=== PATIENT | female | born 1955 | race Caucasian/White ===

== ENCOUNTER 2023-10-07 07:42 | Outpatient (CLI) | payer MEDICARE, BC, SELFPAY ==
--- NOTE | 2023-10-07 07:43 | US_ITS ---
PROCEDURE: US PELVIC CLINICAL INDICATION: pelvic pain COMPARISON: No exams were available for comparison FINDINGS: Transabdominal sonographic images of the pelvis were obtained. Patient unable to tolerate transvaginal examination. UTERUS: 6.5cm x 3.1cmx 2.4cm anteverted with a combined endometrial thickness of 3mm. LEFT OVARY: Not visualized. RIGHT OVARY: Not visualized. Both ovaries are not seen. There is no fluid in the cul-de-sac. IMPRESSION: 1. Anteverted small uterus. The endometrium is thin. 2. Ovaries could not be visualized. 3. No fluid in the cul-de-sac. Dictated by: Gregorio Ashraf MD 10/07/2023 14:45 Gregorio Ashraf MD in [facility] 10/07/2023 14:45
--- NOTE | 2023-10-07 07:43 | MM_ITS ---
PROCEDURE INFORMATION: Exam: MG Bilateral Screening 3D Mammography Exam date and time: 10/07/2023 7:35 AM Age: 67 years old Clinical indication: Screening exam. TECHNIQUE: Imaging protocol: Bilateral Screening tomosynthesis and 2D mammography including computer-aided detection (CAD) when performed. COMPARISON: 1. MG DIG MAMMO DIAG UNI RIGHT 03/21/2009 3:48 PM 2. MG DIG MAMMO BILAT SCREENING 03/15/2009 9:19 AM FINDINGS: MAMMOGRAPHY: Breast composition: There are scattered areas of fibroglandular density. Mass: No suspicious masses. Architectural distortion: None. Calcifications: No suspicious calcifications. Asymmetric density: None. Skin thickening: None. Axillary adenopathy: None. IMPRESSION: No mammographic evidence of malignancy. Annual screening is recommended unless otherwise clinically indicated. ASSESSMENT: BI-RADS Category 1: Negative
== END 2023-10-07 23:59 | disposition home or self-care (01) ==
LOC: RAD 07:43
PROVIDERS: PCP Internal Medicine; Visit Provider Obstetrics & Gynecology
DX: Z12.31 Encounter for screening mammogram for malignant neoplasm of breast (principal); R10.2 Pelvic and perineal pain
CPT/HCPCS: 76856; 77063; 77067

== ENCOUNTER 2023-10-19 07:37 | Outpatient (CLI) | payer MEDICARE, BC, SELFPAY ==
[2023-10-19 08:12] LABS: Basophils # 0.1 K/mm3 (0-0.2); Basophils % 1.3 % (0.1-2.0); Eosinophils # 0.1 K/mm3 (0.0-0.4); Eosinophils % 1.8 % (0.1-12.0); Hematocrit 43.2 % (37.0-47.0); Hemoglobin 13.7 g/dL (12.2-16.2); Lymphocytes # 1.5 K/mm3 (0.7-4.5); Lymphocytes % 35.3 % (10-50); Mean Corpuscular HGB Conc 31.7 g/dL (31.8-35.4); Mean Corpuscular Hemoglobin 30.3 pg (27.0-31.2); Mean Corpuscular Volume 95.7 fl (81-99); Monocytes # 0.3 K/mm3 (0.1-1.0); Neutrophils # 2.3 K/mm3 (1.8-7.8); Neutrophils % 53.6 % (37.0-80.0); Platelet Count 259 K/mm3 (142-424); Red Blood Count 4.51 M/mm3 (4.20-5.40); Red Cell Distribution Width 13.9 % (11.5-17.5); White Blood Count 4.2 K/mm3 (4.8-10.8)
[2023-10-19 09:12] LABS: Alanine Aminotransferase 17 U/L (12-78); Albumin Level 4.4 g/dl (3.5-5.0); Albumin/Globulin Ratio 1.9 (1.1-1.8); Alkaline Phosphatase 52 U/L (38-126); Anion Gap 8.8 mEq/L (5-15); Aspartate Amino Transferase 30 U/L (14-36); Bilirubin,Total 0.9 mg/dl (0.2-1.3); Blood Urea Nitrogen 15 mg/dl (7-17); Calcium 9.7 mg/dl (8.4-10.2); Carbon Dioxide 28 mmol/L (22.0-30.0); Chloride 110 mmol/L (98-107); Chol/HDL Ratio 2.4 (1-3.5); Cholesterol 181 mg/dl (140-200); Estimated Glomerular Filt Rate 84 ml/min (>60); GFR (African American) 102 ML/MIN (>60); Globulin 2.3 g/dL (1.3-3.2); Glucose 99 mg/dl (74-100); HDL Cholesterol 77 mg/dl (40-60); Potassium 4.8 mmoL/L (3.5-5.1); Sodium 142 mmol/L (136-145); Total Protein,Serum 6.7 g/dl (6.3-8.2); Triglycerides 90 mg/dl (30-150); Uric Acid 4.5 mg/dl (2.5-6.2); VLDL Cholesterol 18 mg/dL (0-40)
[2023-10-19 09:24] LABS: C-Reactive Protein < 0.3 mg/L (0-4)
[2023-10-19 11:18] LABS: Erythrocyte Sedimentation Rate 13 mm/hr (0-30)
[2023-10-19 12:08] LABS: Direct LDL Cholesterol 73.53 mg/dL (100-129)
[2023-10-19 12:29] LABS: Thyroid Stimulating Hormone 4.39 uIU/mL (0.465-4.68)
[2023-10-19 12:33] LABS: Ferritin 24.9 ng/ml (11.1-264)
[2023-10-19 13:20] LABS: Vitamin B12 714 pg/mL (239-931)
[2023-10-20 10:13] LABS: Insulin Level Total 8.1 uIU/mL (2.6-24.9)
[2023-10-27 22:12] LABS: 1,25 Dihydroxy Vitamin D 35 pg/mL (.); 1,25-Dihydroxy, Vitamin D-2 <10 pg/mL (.); 1,25-Dihydroxy, Vitamin D-3 35 pg/mL (.)
== END 2023-10-19 23:59 | disposition home or self-care (01) ==
LOC: LAB 07:38
PROVIDERS: PCP Internal Medicine; Visit Provider Obstetrics & Gynecology
DX: M25.551 Pain in right hip; M25.552 Pain in left hip; R10.31 Right lower quadrant pain; R10.32 Left lower quadrant pain; Z12.31 Encounter for screening mammogram for malignant neoplasm of breast
CPT/HCPCS: 36415; 80053; 80061; 82607; 82652; 82728; 83036; 83525; 84443; 84550; 85025; 85651; 86140

== ENCOUNTER 2023-10-28 09:10 | Outpatient (CLI) | payer MEDICARE, BC, SELFPAY ==
--- NOTE | 2023-10-28 09:11 | XR_ITS ---
FINAL REPORT CLINICAL HISTORY: Screening Dexa, Osteoporosis/Osteopenia COMPARISON: None FINDINGS: Using L1-4, the bone mineral density of the spine is 0.731 g/cm2, corresponding to T-score of -2.9 which is consistent with osteoporosis. Using the left hip, the bone mineral density of the femoral neck is 0.648 g/cm2, corresponding to a T-score of -2.4 which is consistent with low bone density. Using the right hip, the bone mineral density of the femoral neck is 0.623 g/cm2, corresponding to a T-score of -2.0 which is consistent with low bone density. FRAX not reported because some T-score at or below -2.5. NOTE: T-score: Standard deviation compared with peak bone mass of young adult mean. *Following the recommendations of the International Society of Bone densitometry, classification of hip BMD is based on the lower of two T-scores; total hip or femoral neck. IMPRESSION: Diminished bone mineral density consistent with osteoporosis. Reviewed, Interpreted and Dictated by Isidro Sutton III, MD Transcribed by Meaghan Bill Authenticated and . [facility]
== END 2023-10-28 23:59 | disposition home or self-care (01) ==
LOC: RAD 09:11
PROVIDERS: PCP Internal Medicine; Visit Provider Obstetrics & Gynecology
DX: M81.0 Age-related osteoporosis without current pathological fracture (principal); R10.31 Right lower quadrant pain; R10.32 Left lower quadrant pain; M25.551 Pain in right hip; M25.552 Pain in left hip; M85.80 Other specified disorders of bone density and structure, unspecified site; Z78.0 Asymptomatic menopausal state; Z00.00 Encounter for general adult medical examination without abnormal findings
CPT/HCPCS: 77080

== ENCOUNTER 2025-02-10 08:01 | Outpatient (CLI) | payer MEDICARE, BC, SELFPAY ==
--- OUTSIDE RECORDS SUMMARY | 2025-02-10 08:04 | XMS_ITS | Clinical Summary ---
[facility] Address [address] [place] [address] Care Team Providers Care Home Care Aide Name Role Phone Jt Oviedo MD Primary Care Provider [phone] Allergies No known active allergies Medications omeprazole (priLOSEC) 40 MG capsuleIndicatio ns:Gastroesophag eal reflux disease, unspecified whether esophagitis present Take 1 capsule by mouth Daily. 90 capsule 3 Active ondansetron (ZOFRAN) 4 MG tablet 3 Active estradiol (ESTRACE) 0.1 MG/GM vaginal cream Insert 1 gram into the vagina twice a week 3 Active Vitamin D, Cholecalciferol, 50 MCG (1999) capsule Take by mouth. Active fluticasone (FLONASE) 50 MCG/ACT nasal sprayIndications :Non-seasonal allergic rhinitis due to pollen 2 sprays into the nostril(s) as directed by provider Daily. 11.1 mL 4 Active alendronate (FOSAMAX) 70 MG tablet Take 1 tablet by mouth Every 7 (Seven) Days. 4 Active simvastatin (ZOCOR) 20 MG tablet Take 1 tablet by mouth every night at bedtime. 90 tablet 2 4 Active Calcium Carbonate-Vit D-Min (Calcium 600+D Plus Minerals) 600-400 MG-UNIT tablet Take 1 tablet by mouth 2 (Two) Times a Day. Active levothyroxine (SYNTHROID, LEVOTHROID) 75 MCG tablet Take 1 tablet by mouth Daily. 90 tablet 1 5 Active cetirizine (zyrTEC) 10 MG tabletIndication s:Non-seasonal allergic rhinitis due to pollen Take 1 tablet by mouth Daily. 30 tablet 3 5 Active Active Problems Problem Noted Date Diagnosed Date Age-related osteoporosis wit hout current pathological fracture 03/25/2024 Assessment & Plan (03/25/2024 6:43 PM EST): DEXA scan from 10/2023 revealing osteoporosis of the lumbar spine and bilateral hip osteopenia. Started back on Fosamax 70 mg weekly by her lab clerk with proper dosing technique emphasized today, taking vitamin D 2000 IU daily advised adding calcium 600 mg twice daily OTC. Recommended repeating DEXA scan in 2 years. I did specifically address her concern regarding Fosamax therapy, and given that she had been off the medication for several years I think this is the most appropriate initial therapy for her. Medicare annual wellness visit, initial 03/25/19 25 Assessment & Plan (03/25/2024 6:43 PM EST): Encounter for general adult medical examination with abnormal findings 03/25/2024 Assessment & Plan (03/25/2024 6:43 PM EST): 68-year-old female presenting for general health review/complete physical along with initial Medicare wellness visit, specific health issues being addressed as detailed below, health maintenance includes Cologuard up-to-date from 06/2022, mammogram and DEXA scan both current from 10/2023, most recent Pap smear specific date unknown with low risk profile, no further evaluation necessary, screening labs from 09/2023 up-to-date with limited follow-up testing being performed today, Tdap vaccine deferred by patient given lack of Medicare coverage, Prevnar 20 and high-dose flu shot given today, advised update Shingrix vaccine through health [facility]. Follow-up in 1 year for another Medicare wellness visit and complete physical, and as needed in the interim. Orders: CBC & Differential; Future TSH; Future T4, Free; Future T4, Free TSH CBC & Differential Neutropenia 03/25/2024 Assessment & Plan (03/25/2024 6:43 PM EST): Mild nonspecific leukopenia with white count of 4200 per testing in 09/2019 for having had a normal hemoglobin platelet count of differential. Will simply repeat a CBC with differential. Orders: CBC & Differential; Future CBC & Differential Myalgia 03/25/2024 Assessment & Plan (03/25/2024 6:43 PM EST): Describes several months of some vague myalgias and for extremities primarily. Her examination is benign as is her history otherwise. Suspect may be statin related, having her for now discontinue her simvastatin for at least 4 to 6 weeks at which she will notify this office regarding her clinical response. If the myalgias have resolved this would support mild just secondary to simvastatin she will be switched to a different statin on a trial basis. If the myalgias do not stop after that time interval, then the likelihood of simvastatin causing this myalgias would be minimal. Will also check some screening labs as noted Orders: CK Isoenzymes; Future Myoglobin, Serum; Future Myoglobin, Serum CK Isoenzymes Non-seasonal allergic rhinitis due to pollen 07/2023 Assessment & Plan (03/25/2024 6:43 PM EST): Relates good symptomatic relief taking cetirizine 10 mg daily OTC. Advised she may supplement with Flonase as needed. Assessment & Plan (11/02/2023 6:27 PM EDT): Testing negative for COVID and flu in office today. Symptoms set and physical exam findings most consistent with that of allergic rhinitis. Patient not currently taking any type of allergy medications. Prescription sent for daily Flonase and Zyrtec for her to begin taking. Also discussed benefits of saline nasal spray. She will follow-up with her regular PCP, Dr. Jt Oviedo if no improvement COVID-19 virus infection 04/30/2023 Overview (04/30/2023): COVID-19 infection 04/30/2023 Assessment & Plan (04/30/2023 3:12 PM EST): Rapid COVID-19 positive. Does not appear acutely ill. Given high risk based upon age, will treat with Paxil bid with patient advised to discontinue her simvastatin while on therapy, pushing plenty fluids, Motrin or Tylenol as needed, and advised that she should stay in isolation until she is afebrile x 24 hours without therapy, and is significantly feeling better. Advise if has any significant deterioration of condition in the interim, i.e. development of any respiratory distress, etc. Very clinically stable at time of office discharge. Viral syndrome 04/30/2023 Assessment & Plan (04/30/2023 3:13 PM EST): Rapid COVID-19 screen positive, influenza screen negative. Treat COVID-19 as noted above. Symptomatic treatment otherwise. Sensorineural hearing loss 06/25/2022 Vitamin D deficiency 06/19/2022 Microhematuria 05/30/2022 Urinary urgency 05/30/2022 Dysuria 04/21/2022 Osteopenia of multiple sites 04/04/2022 Overview (04/04/2022): DEXA scan 01/2020 Vitamin D deficiency 04/04/2022 Assessment & Plan (03/25/2024 6:43 PM EST): Taking vitamin D 2000 IU daily. Satisfactory level from 09/2023. Vertigo 04/04/2022 Overview (04/04/2022): Suspected BPPV 11/2020 Cervicalgia 04/04/2022 Overview (04/04/2022): MRI C-spine 05/21/2021 revealing degenerative changes with small disc central protrusion C6-7 Acquired hypothyroidism 04/04/2022 Assessment & Plan (03/25/2024 6:43 PM EST): Taking levothyroxine 75 mcg daily with an isolated TSH normal in 09/2023. Repeat TSH adding free T4. Orders: TSH; Future T4, Free; Future T4, Free TSH Dyslipidemia 04/04/2022 Assessment & Plan (03/25/2024 6:43 PM EST): Prescribed simvastatin 20 mg nightly with satisfactory lipid profile from 09/2023. She is having some myalgias which could be attributed to the simvastatin thus I advised discontinuing simvastatin for at least 4 to 6 weeks to see if the myalgias resolved. If not then reinitiate simvastatin as prescribed. If the myalgias do get better suggesting statin related etiology, then will initiate trial of a different statin. If this is the case then we will repeat another lipid profile in 2 to 3 months. Gastroesophageal reflux disease 04/04/2022 Assessment & Plan (03/25/2024 6:43 PM EST): Good control of symptoms taking omeprazole 40 mg daily. Resolved Problems Problem Noted Date Diagnosed Date Resolved Date Microscopic hematuria 04/21/20222022 Immunizations Immunization Administration Dates Next Due COVID-19 (SABA) 05/01/2020 COVID-19 (MODERNA) 1st,2nd,3 rd Dose Monovalent 08/15/2021,01/21/2021 COVID-19 (MODERNA) BIVALENT 12+YRS 02/03/2022 Fluzone (or Fluarix & Flulav al for VFC) >6mos 01/02/2022,11/22/2019 Fluzone High-Dose 65+YRS 03/25/2024 Influenza Seasonal Injectable 12/03/2020 Influenza, Unspecified 01/02/2022,12/03/2020, Pneumococcal Conjugate 20-Valent (PCV20) 025 Social History Tobacco Use Types Packs/Day Years Used Date Smoking Tobacco: Never Smokeless Tobacco: Never Tobacco Cessation:Counseling Given: Not Answered Alcohol Use Standard Drinks/Week Comments Yes 0 (1 standard drink = 0.6 oz pur e alcohol) social PHQ-2 Answer Date Recorded Retired PHQ-9: Brief Depression Severity Measure Score 0 06/20/2022 PHQ-2 Answer Date Recorded Patient Health Questionnaire-2 Score 0 03/25/2024 Comments Unknown Sex and Gender Information Value Date Recorded Sex Assigned at Not on file Legal Sex Female 1:04 PM EDT Gender Identity Not on file Sexual Orientation Not on file Last Filed Vital Signs Vital Sign Reading Time Taken Comments Blood Pressure 133/83 03/25/2024 8:35 AM EST Pulse 104 03/25/2024 8:35 AM EST Temperature 36.4 C (97.6 F) 03/25/2024 8:35 AM EST Respiratory Rate 18 10/30/2023 10:15 AM EDT Oxygen Saturation 99% 03/25/2024 8:35 AM EST Inhaled Oxygen Concentration - - Weight 64.1 kg (141 lb 6.4 oz) 03/25/2024 8:35 A M EST Height 160 cm (5' 3 ) 03/25/2024 8:35 AM EST Body Mass Index 25.05 03/25/2024 8:35 AM EST Plan of Treatment Health Maintenance Due Date Last Done Comments TDAP/TD VACCINES (1 - Tdap) 1974 COLON CANCER SCREENING 5 YEA R SIGMOIDOSCOPY [address] COLONOGRAPHY 2002 FECAL OCCULT BLOOD TEST 2002 FIT Testing (1 year) 2002 ZOSTER VACCINE (1 of 2) 11/24/2007 INFLUENZA VACCINE 09/23/2024 03/25/2024, , 01/02/2022, Additional history exists COVID-19 Vaccine (2023-2 5 season) 2024 12/30/2023, 02/03/2022, 08/15/2021, Additional history exists ANNUAL WELLNESS VISIT 03/25/2025 03/25/2024, 025 COLOGUARD 07/10/2025 07/10/2022 COLORECTAL CANCER SCREENING 07/10/2025 MAMMOGRAM 10/18/2025 10/19/2023, 09/24, 10/07/2023, Additional history exists DXA SCAN 10/27/2025 10/28/2023, 10/28/2023 HEPATITIS C SCREENING Completed 06/20/2022 Pneumococcal Vaccine 50+ Completed 03/25/2024 Procedures Procedure Name Priority Date/Time Associated Diagnosis Comments SCANNED - DEXA 10/28/2023 SCANNED - MAMMO 10/07/2023 COLOGUARD Routine 07/10/2022 8:00 AM EDT Encounter for general adult medical examination with abnormal findings Screen for colon cancer HEPATITIS C ANTIBODY Routine 06/20/2022 10:19 AM EDT Encounter for general adult medical examination with abnormal findings Need for hepatitis C screening test from Last 3 Months or Most Recently Relevant to Health Maintenance Results * DEXA Scan (10/28/2023) Anatomical Region Laterality Modality Other Jt Oviedo MD CHART REVIEW TABS Final Res ult * MAMMO Scan (10/07/2023) Anatomical Region Laterality Modality Other Jt Oviedo MD CHART REVIEW TABS Final Res ult * Cologuard - Stool, Per Rectum (07/10/2022 8:00 AM EDT) Cologuard Negative Negative 07/19/2022 5:32 AM EDT [facility] (CLIA #:[id number]) Comment: NEGATIVE TEST RESULT. A negative Cologuard result indicates a low likelihood that a colorectal cancer (CRC) or advanced adenoma (adenomatous polyps with more advanced pre-malignant features) is present. The chance that a person with a negative Cologuard test has a colorectal cancer is less than 1 in 1500 (negative predictive value >99.9%) or has an advanced adenoma is less than 5.3% (negative predictive value 94.7%). These data are based on a prospective cross-sectional study of 10,000 individuals at average risk for colorectal cancer who were screened with both Cologuard and colonoscopy. (Mis Frias al, N Engl J Med 2014;370(14):2624-2538) The normal value (reference range) for this assay is negative. COLOGUARD RE-SCREENING RECOMMENDATION: Periodic colorectal cancer screening is an important part of preventive healthcare for asymptomatic individuals at average risk for colorectal cancer. Following a negative Cologuard result, the [place] [employer] Society and U.S. Multi-Society Task Force screening guidelines recommend a Cologuard re-screening interval of 3 years. References: [place] [employer] Guideline for Colorectal Cancer Screening: https://www.cancer.org/cancer/ehguy-kbmjmz-fpqtnp/jdmtdxlxy-gyeqkwind-oxiylmd/ac s-rec ommendations.html.; Bry Brownand CR, Shellie MillerK, Colorectal Cancer Screening: Recommendations for Physicians and Patients from the U.S. Multi-Society Task Force on Colorectal Cancer Screening , Am J Gastroenterology 2017; 112:9378-6514. TEST DESCRIPTION: Composite algorithmic analysis of stool DNA-biomarkers with hemoglobin immunoassay. Quantitative values of individual biomarkers are not reportable and are not associated with individual biomarker result reference ranges. Cologuard is intended for colorectal cancer screening of adults of either sex, 45 years or older, who are at average-risk for colorectal cancer (CRC). Cologuard has been approved for use by the U.S. FDA. The performance of Cologuard was established in a cross sectional study of average-risk adults aged 50-84. Cologuard performance in patients ages 45 to 49 years was estimated by sub-group analysis of near-age groups. Colonoscopies performed for a positive result may find as the most clinically significant lesion: colorectal cancer [4.0%], advanced adenoma (including sessile serrated polyps greater than or equal to 1cm diameter) [20%] or non- advanced adenoma [31%]; or no colorectal neoplasia [45%]. These estimates are derived from a prospective cross-sectional screening study of 10,000 individuals at average risk for colorectal cancer who were screened with both Cologuard and colonoscopy. (Mis Frias al, N Engl J Med 2014;370(14):5221-9663.) Cologuard may produce a false negative or false positive result (no colorectal cancer or precancerous polyp present at colonoscopy follow up). A negative Cologuard test result does not guarantee the absence of CRC or advanced adenoma (pre-cancer). The current Cologuard screening interval is every 3 years. ([place] [employer] Society and U.S. Multi-Society Task Force). Cologuard performance data in a 10,000 patient pivotal study using colonoscopy as the reference method can be accessed at the following location: www.[employer].YelloYello/results. Additional description of the Cologuard test process, warnings and precautions can be found at www.[employer].com. Stool specimen (specimen) Specimen from rectum / Unknown 07/10/2022 8:00 AM EDT 07/11/2022 4:21 PM EDT Jt Oviedo MD BODY FLUIDS AND STOOLS ORDERAB LES Final Result [facility] (CLIA #:[id number]) [address] [place] [address], [place] [phone] * Hepatitis C Antibody (06/20/2022 10:19 AM EDT) Hep C Virus Ab Non Reactive Non Reactive [facility] Comment: HCV antibody alone does not differentiate between previously resolved infection and active infection. Equivocal and Reactive HCV antibody results should be followed up with an HCV RNA test to support the diagnosis of active HCV infection. Blood Structure of right upper limb / Unknown 06/20/2022 10:19 AM EDT 06/20/2022 Comment:Blood Release to [facility] Narrative [facility] (AMBULATORY) - 06/21/2022 8:08 AM EDT Performed at: - Lab[address] [id number] Tavern Car Attendant: Nicholas Urias PhD, Phone: [phone] Jt Oviedo MD LAB BLOOD ORDERABLES Final Res ult Performing Organization Address [facility] Co de Phone Number [facility] [address] [place] [address], [place] [phone] [facility] [address] [place] [address], [place] [phone] from Last 3 Months or Most Recently Relevant to Health Maintenance Insurance MEDICARE A & [facility] Care Teams Home Care Aide Relationship Specialty Start Date End Date Jt Oviedo MD [address] [place] [address] PCP - General Internal Medicine 04/04/22
--- OUTSIDE RECORDS SUMMARY | 2025-02-10 08:04 | XMS_ITS | Clinical Summary ---
Author Organization Healthcare Address [address] [place] [address] Care Team Providers Care Engineering Technician Parking Name Role Phone Jt Oviedo MD Primary Care Provider [phone] Allergies No known active allergies Medications levothyroxine (Synthroid, Levoxyl) 75 MCG tablet Take 75 mcg by mouth 1 (one) time each day. 02/06/2022 Active omeprazole (PriLOSEC) [address] capsule Take 40 mg by mouth 1 (one) time each day. 04/17/2022 Active simvastatin (Zocor) 20 MG tablet Take 20 mg by mouth every night. 02/06/2022 Active estradiol (Estrace) 0.1 MG/GM vaginal cream Insert 1 gram into the vagina twice a week 30 g 11 06/05/2022 Active Active Problems Problem Noted Date Diagnosed Date Urinary frequency 05/30/2022 Microhematuria 05/30/2022 Urinary urgency 05/30/2022 Acquired hypothyroidism 04/04/2022 Dyslipidemia 04/04/2022 Gastroesophageal reflux disease 04/04/2022 Vertigo 04/04/2022 Overview (05/30/2022): Suspected BPPV 11/2020 Family History Medical History Relation Name Comments No Known Problems Father Alzheimer's disease Mother Relation Name Status Comments Father Mother Social History Tobacco Use Types Packs/Day Years Used Date Smoking Tobacco: Never Smokeless Tobacco: Never Tobacco Cessation:Counseling Given: Not Answered Alcohol Use Standard Drinks/Week Comments Never 0 (1 standard drink = 0.6 oz pur e alcohol) PHQ-2 Answer Date Recorded Patient Health Questionnaire-2 Score 0 05/23/2022 PHQ-2A Answer Date Recorded Patient Health Questionnaire-2 Score 0 05/23/2022 Comments Unknown Sex and Gender Information Value Date Recorded Sex Assigned at Not on file Legal Sex Female 8:50 AM EDT Gender Identity Not on file Sexual Orientation Not on file Last Filed Vital Signs Vital Sign Reading Time Taken Comments Blood Pressure 144/80 06/04/2022 8:43 AM EDT Pulse 87 06/04/2022 8:43 AM EDT Temperature - - Respiratory Rate - - Oxygen Saturation - - Inhaled Oxygen Concentration - - Weight 56.2 kg (123 lb 14.4 oz) 06/04/2022 8:43 AM EDT Height 160 cm (5' 3 ) 05/23/2022 9:01 AM EDT Body Mass Index 21.95 05/23/2022 9:01 AM EDT Plan of Treatment Health Maintenance Due Date Last Done Comments [facility]-Bone Density Scan 1957 [facility]-Hepatitis C Screening 1955 [facility]-Infant/Child/Adol SDOH Screenings 1955 [facility]- SDOH Screenings 11/24/1975 [facility]-Adult SDOH Screenings 11/24/1975 [facility]-DTaP,Tdap,and Td Vaccines (1 - Tdap) 1976 CT Colonography 2002 Colonoscopy 2002 FIT-DNA 2002 FIT 2002 FOBT 2002 Sigmoidoscopy 2002 [facility]-Colorectal Cancer Screening 2002 [facility]-Breast Cancer Screening 11/24/2007 [facility]-Pneumococcal Vaccine: 50+ Years (1 of 1 - PCV) 11/24/2007 [facility]-RSV Vaccine: 60+ Years or (1 - Risk 50-74 years 1-dose series) 11/24/2007 [facility]-Zoster Vaccines (1 of 2) 11/24/2007 [facility]-Depression Screening 05/24/2023 05/23/2022 [id number] Vaccine ( - season) 2024 02/03/2022, 08/15/2021, 01/21/2021, Additional history exists [facility]-Influenza Vaccine (#1) 10/24/202401/02, 12/03/2020, 11/22/2019 HPV Vaccines (No Doses Required) Completed [facility]-HIB Vaccines Aged Out No longer e ligible based on patient's age to complete this topic [facility]-Hepatitis A Vaccines Aged Out No longer eligible based on patient's age to complete this topic [facility]-IPV Vaccines Aged Out No longer e ligible based on patient's age to complete this topic [facility]-Rotavirus Vaccines Aged Out No lo nger eligible based on patient's age to complete this topic Insurance [facility] Care Teams Engineering Technician Parking Relationship Specialty Start Date End Date Jt Oviedo MD [address] [place] [address] PCP - General 05/09/22
[2025-02-10 09:23] LABS: 25-OH Vitamin D, Total 69.3 ng/mL (30-100)
[2025-02-10 09:39] LABS: Thyroid Stimulating Hormone 4.76 uIU/mL (0.465-4.68)
[2025-02-10 09:58] LABS: Vitamin B12 671 pg/mL (239-931)
[2025-02-10 10:45] LABS: Ferritin 28.7 ng/ml (11.1-264)
[2025-02-11 08:37] LABS: FSH 67.3 mIU/mL (25.8-134.8)
== END 2025-02-10 23:59 | disposition home or self-care (01) ==
LOC: LAB 08:02
PROVIDERS: PCP Internal Medicine; Visit Provider Obstetrics & Gynecology
DX: E03.9 Hypothyroidism, unspecified (principal); Z86.39 Personal history of other endocrine, nutritional and metabolic disease; M81.0 Age-related osteoporosis without current pathological fracture; L65.9 Nonscarring hair loss, unspecified
CPT/HCPCS: 36415; 82306; 82607; 82670; 82728; 83001; 84443